=== PATIENT | female | born 1975 | race Hispanic/Latino ===

== ENCOUNTER → 2023-02-28 | Outpatient (CLI) | payer OTHER | END | disposition home or self-care (01) | LOC: RAH 13:53 | PROVIDERS: ATTEND Obstetrics & Gynecology | DX: N93.9 Abnormal uterine and vaginal bleeding, unspecified (principal); R93.89 Abnormal findings on diagnostic imaging of other specified body structures; N83.291 Other ovarian cyst, right side | CPT/HCPCS: 76830 ==

== ENCOUNTER 2023-03-17 09:32 | Day surgery (SDC) | payer OTHER ==
[2023-03-14 16:07] VITALS: BP 126/68
[~2023-03-17] VITALS: Ht 162.6 cm; Wt 73.9 kg
[2023-03-17 10:00] VITALS: BP 105/67
[2023-03-17] MEDS ORDERED: LIDOCAINE PF 100MG/5ML (2%) SYRINGE 5ML ONE (12:19)
[2023-03-17] MEDS ORDERED: PROPOFOL 10 MG/ML 20ML VIAL IV ONE (12:19)
== END 2023-03-17 13:50 | disposition home or self-care (01) ==
LOC: DAH 09:32
PROVIDERS: ATTEND Internal Medicine Gastroenterology
DX: D50.9 Iron deficiency anemia, unspecified (principal); Z20.822 Contact with and (suspected) exposure to COVID-19; K63.5 Polyp of colon; K31.89 Other diseases of stomach and duodenum; K59.00 Constipation, unspecified; K92.1 Melena; Z98.51 Tubal ligation status; Z98.890 Other specified postprocedural states; Z90.49 Acquired absence of other specified parts of digestive tract
CPT/HCPCS: 87426; 81025; 43239; 45380; J2001; J2704; A4620; A4215 ×2; A4223; A4657; A7002; A4222; A4221; A4663; J7030; A4606

== ENCOUNTER 2023-04-23 06:51 | Observation (INO) | payer OTHER ==
[2023-04-18 12:51] LABS: BASOPHILS # (AUTO) 0.04 K/uL (0.00-0.20); BASOPHILS % (AUTO) 0.7 % (0.0-5.0); EOSINOPHILS # (AUTO) 0.14 K/uL (0.00-0.70); EOSINOPHILS % (AUTO) 2.5 % (0.0-8.0); HEMATOCRIT 30.3 % (36-48); IMMATURE GRANULOCYTE ABSOLUTE 0.02 K/uL (0-1); LYMPHOCYTES # (AUTO) 1.5 K/uL (1.0-4.8); MEAN CORPUSCULAR HEMOGLOBIN 19.6 pg (27.0-33.0); MEAN CORPUSCULAR HGB CONC 28.4 g/dL (32.0-36.0); MONOCYTES # (AUTO) 0.6 K/uL (0.1-1.0); MONOCYTES % (AUTO) 10.5 % (3.0-13.0); NEUTROPHILS # (AUTO) 3.3 K/uL (1.8-7.7); NEUTROPHILS % (AUTO) 58.9 % (40.0-77.0); PLATELET COUNT (AUTO) 408 K/uL (130-400); RED BLOOD CELL COUNT(AUTO) 4.39 MIL/uL (4.00-5.50); RED CELL DISTRIBUTION WIDTH 20.1 % (11.0-15.5); WHITE BLOOD COUNT (AUTO) 5.6 K/uL (4.8-10.8)
[2023-04-18 13:27] VITALS: BP 114/71; PULSE 58; RESP 20
[2023-04-23] VITALS (23 sets, daily range): BP systolic 73–108; BP diastolic 43–68; PULSE 64–99; RESP 13–18
[~2023-04-23] VITALS: Ht 162.6 cm; Wt 73.7 kg
[2023-04-23] MEDS ORDERED: METRONIDAZOLE 500MG/100ML BAG 100 ML ONE (07:04)
[2023-04-23] MEDS ORDERED: PHENAZOPYRIDINE HCL 200 MG TABLET ONE (07:04)
[2023-04-23] MEDS ORDERED: CEFAZOLIN SODIUM 2 GM VIAL ONE (07:04)
[2023-04-23] MEDS ORDERED: LACTATED RINGERS 1000ML 1,000 ML IV ONE (07:04)
[2023-04-23] MEDS ORDERED: SCOPOLAMINE HYDROBROMIDE 1 EACH ADH..PATCH TD ONE (07:04)
[2023-04-23] MEDS ORDERED: DEXAMETHASONE SOD PHOSPHATE 4 MG/ML 5ML VIAL ONE (07:04)
[2023-04-23] MEDS ORDERED: BUPIVACAINE/PF 0.25% 30ML VIAL IJ ONE ×2 (07:30→08:36)
[2023-04-23] MEDS ORDERED: MIDAZOLAM HCL 1 MG/ML 2ML VIAL ONE (07:43)
[2023-04-23] MEDS ORDERED: KETAMINE 50MG/ML SYRINGE 50 MG/ML DISP.SYRIN ONE (07:46)
[2023-04-23] MEDS ORDERED: PROPOFOL 10 MG/ML 20ML VIAL IV ONE (07:48)
[2023-04-23] MEDS ORDERED: ROCURONIUM 10MG/1ML SYR 10 MG/ML ML ONE ×2 (07:48→08:27)
[2023-04-23] MEDS ORDERED: FENTANYL CITRATE PF 50 MCG/1 ML 2ML VIAL ONE (07:48)
[2023-04-23] MEDS ORDERED: LIDOCAINE PF 100MG/5ML (2%) SYRINGE 5ML ONE (07:48)
[2023-04-23] MEDS ORDERED: CEFAZOLIN SODIUM 2 GM VIAL IVPB ONE (07:55)
[2023-04-23] MEDS ORDERED: ARTIFICIAL TEARS 3.5 GM OINTMENT ONE (08:05)
[2023-04-23] MEDS ORDERED: PHENYLEPHRINE HCL 10 MG/ML 1ML VIAL IV ONE (09:37)
[2023-04-23] MEDS ORDERED: ONDANSETRON 4MG INJ ONE ×3 (10:04→18:47)
[2023-04-23] MEDS ORDERED: NEOSTIGMINE 5MG/5ML SYR IV ONE (10:04)
[2023-04-23] MEDS ORDERED: GLYCOPYRROLATE 1 MG/5 ML SYRINGE ONE (10:04)
[2023-04-23] MEDS ORDERED: MEPERIDINE-PF 25 MG/ML SYG ONE ×2 (10:04→10:55)
[2023-04-23] MEDS ORDERED: KETOROLAC 30MG VIAL (30MG/ML) ONE (10:05)
[2023-04-23] MEDS ORDERED: LORAZEPAM 1 MG TABLET PO PRN (12:30)
[2023-04-23] MEDS ORDERED: ONDANSETRON ODT 4MG TAB SL PRN (12:30)
[2023-04-23] MEDS ORDERED: MORPHINE 10 MG SYG IM PRN (12:30)
[2023-04-23] MEDS ORDERED: LORAZEPAM 2 MG/ML 1 ML VIAL IVP PRN (12:30)
[2023-04-23] MEDS: ACETAMINOPHEN 500 MG TABLET PO SCH ×2 (14:01→22:12)
[2023-04-23] MEDS ORDERED: KETOROLAC 15MG/ML VIAL (15MG/ML) IM SCH (16:00)
[2023-04-23] MEDS: KETOROLAC 15MG/ML VIAL (15MG/ML) IV SCH (18:12)
[2023-04-23] MEDS ORDERED: ONDANSETRON 4MG INJ IVP PRN (19:00)
[2023-04-24] MEDS: KETOROLAC 15MG/ML VIAL (15MG/ML) IV SCH (01:57)
[2023-04-24 03:37] VITALS: BP 100/68; PULSE 71; RESP 18
[2023-04-24] MEDS: ACETAMINOPHEN 500 MG TABLET PO SCH (05:50)
== END 2023-04-24 05:55 | disposition home or self-care (01) ==
LOC: DAH 06:51 → WSH 06:52 → DAH 06:52 → WSH 11:30
PROVIDERS: ADMIT Obstetrics & Gynecology; ATTEND Obstetrics & Gynecology
DX: N92.0 Excessive and frequent menstruation with regular cycle (principal); D50.0 Iron deficiency anemia secondary to blood loss (chronic); K66.0 Peritoneal adhesions (postprocedural) (postinfection); Z98.51 Tubal ligation status; Z79.899 Other long term (current) drug therapy
CPT/HCPCS: 84703; 85025; 86850 ×2; 86900 ×2; 86901 ×2; 87426; 36415 ×2; 58571; 96374; 96372; 81025; 88305; 96376; A6260; S2900; G0378 ×20; A4663; J7030; J7120 ×3; A4600; A4215 ×3; A4344; J3010; J3490 ×5; J2710; J2001; J2270; J2250; J2704; J2405 ×3; J1885 ×3; J1100; J2175 ×2; J2371; J0690 ×2; A4649 ×5; G0168; A4930; A4223; A4222; A4221; L0625

== ENCOUNTER 2023-08-05 08:44 | Emergency (ER) | payer OTHER ==
[~2023-08-05] VITALS: Ht 160 cm; Wt 71.7 kg
[2023-08-05 09:29] VITALS: TEMP 100
[2023-08-05 09:30] VITALS: PULSE 110; RESP 18
[2023-08-05] MEDS ORDERED: GUAIFENESIN/DEXTROMETHORPHAN 1 EACH TAB.SR.12H PO ONE (09:30)
[2023-08-05] MEDS ORDERED: ACETAMINOPHEN 500 MG TABLET PO ONE (09:30)
[2023-08-05] MEDS ORDERED: DEXAMETHASONE SOD PHOSPHATE 4 MG/ML 1ML VIAL IM ONE (09:30)
[2023-08-05] MEDS ORDERED: IPRATROPIUM/ALBUTEROL SULFATE 3 ML SOLUTION IH ONE (09:30)
[2023-08-05 09:38] LABS: RAPID GROUP A STREP negative (NEGATIVE)
[2023-08-05 09:43] LABS: SARS-CoV-2, RNA, NAAT NEGATIVE SARS CoV-2 (NEGATIVE)
[2023-08-05 09:48] LABS: INFLUENZA TYPE B Negative For Type B (NEGATIVE)
[2023-08-05] MEDS ORDERED: LACTATED RINGERS 1000ML IV ONE (10:00)
[2023-08-05 10:21] LABS: INFLUENZA TYPE A Positive For Type A (NEGATIVE)
[2023-08-05] MEDS ORDERED: OSELTAMIVIR PHOSPHATE 75 MG CAP PO ONE (10:30)
[2023-08-05] MEDS ORDERED: BROM118S48 PO (10:31)
[2023-08-05] MEDS ORDERED: ALBU2.5V2 IH (10:31)
[2023-08-05] MEDS ORDERED: OSEL75 PO (10:31)
[2023-08-05 10:44] VITALS: BP 116/71; PULSE 103; RESP 18; O2SAT 97
== END 2023-08-05 10:44 | disposition home or self-care (01) ==
LOC: EDH 08:44
DX: J10.1 Influenza due to other identified influenza virus with other respiratory manifestations (principal); R05.9 Cough, unspecified; R50.9 Fever, unspecified; R09.81 Nasal congestion; M79.10 Myalgia, unspecified site; Z90.710 Acquired absence of both cervix and uterus; Z90.49 Acquired absence of other specified parts of digestive tract; Z20.822 Contact with and (suspected) exposure to COVID-19
CPT/HCPCS: 99284; 96360; 71045; 87635; 87880; 87804 ×2; 94640; 96372; J1100; C9803